=== PATIENT | female | born 1985 | race Caucasian/White ===

== ENCOUNTER → 2017-01-29 | Outpatient (CLI) | payer OTHER ==
[~2017-01-29] MED LIST: MULTIPLE VITAMI1 T25 PO; PERCOCET 325 MG1 TA2 PO; PREDNISONE10 MG PO
== END | disposition home or self-care (01) ==
LOC: ORTHO 02:00
DX: M25.512 Pain in left shoulder (principal); M79.622 Pain in left upper arm

== ENCOUNTER → 2017-10-22 | Outpatient (CLI) | payer OTHER | END | disposition home or self-care (01) | LOC: ORTHO 03:50 | DX: M25.512 Pain in left shoulder (principal) ==

== ENCOUNTER → 2017-12-21 | Outpatient (CLI) | payer OTHER | END | disposition home or self-care (01) | LOC: MRI 12-20 09:00 | DX: M75.102 Unspecified rotator cuff tear or rupture of left shoulder, not specified as traumatic (principal) ==

== ENCOUNTER → 2021-06-09 | Outpatient (CLI) | payer OTHER | END | disposition home or self-care (01) | LOC: US 10:30 | PROVIDERS: ATTEND Nurse Practitioner Women's Health | DX: Q51.3 Bicornate uterus (principal) ==